=== PATIENT | male | born 1960 | race Caucasian/White ===

== ENCOUNTER 2022-09-27 14:47 | Inpatient (IN) | payer OTHER ==
[2022-09-27 15:18] VITALS: BMI 26.2
[2022-09-27] MEDS ORDERED: LORazepam 2 MG/ML SDV VIAL IM ONE (17:21)
[2022-09-27] MEDS ORDERED: ACETAMINOPHEN 325 MG TABLET (FP) PO PRN ×2 (17:22)
[2022-09-27] MEDS ORDERED: METHOCARBAMOL 500 MG TABLET PO PRN (17:22)
[2022-09-27] MEDS ORDERED: ONDANSETRON *ODT* 4 MG TABLET SL PRN (17:22)
[2022-09-27] MEDS ORDERED: BISMUTH SUBSALICYLATE 524 MG/30 ML PO PRN (17:22)
[2022-09-27] MEDS ORDERED: MAG HYDROX/AL HYDROX/SIMETH 30 ML UNIT-DOSE CUP PO PRN (17:22)
[2022-09-27] MEDS ORDERED: MAGNESIUM HYDROX 2400MG/30ML ORAL SUSPENSION 30 ML CUP PO PRN (17:22)
[2022-09-27] MEDS ORDERED: DICYCLOMINE HCL 10 MG CAPSULE PO PRN (17:22)
[2022-09-27] MEDS ORDERED: IBUPROFEN 400 MG TABLET (FP) PO PRN (17:22)
[2022-09-27] MEDS ORDERED: IBUPROFEN 600 MG TABLET (FP) PO PRN (17:22)
[2022-09-27] MEDS ORDERED: POLYETHYLENE GLYCOL (HEALTHYLAX) 3350 17 GM PACKET PO PRN (17:22)
[2022-09-27] MEDS ORDERED: LOPERAMIDE HCL 2 MG CAPSULE PO PRN (17:22)
[2022-09-27] MEDS ORDERED: BENZOCAINE/MENTHOL (CHLORASEPTIC ) LOZENGE MM PRN (17:22)
[2022-09-27] MEDS ORDERED: NALOXONE HCL (KLOXXADO) 8 MG SPRAY NS PRN (17:22)
[2022-09-27] MEDS ORDERED: hydrOXYzine PAMOATE 25 MG CAPSULE (FP) PO PRN (17:22)
[2022-09-27] MEDS ORDERED: NICOTINE 10 MG CARTRIDGE (INHALER) IH PRN (17:22)
[2022-09-27] MEDS: ALBUTEROL SO4 HFA INHALER IH PRN (20:57)
[2022-09-27] MEDS: MELATONIN 5 MG TABLETS PO SCH (22:15)
[2022-09-27] MEDS: THIAMINE HCL 100 MG TABLET (FP) PO SCH (22:15)
[2022-09-27] MEDS: diazePAM 5 MG TABLET PO SCH (22:16)
[2022-09-28] MEDS: diazePAM 5 MG TABLET PO PRN ×2 (01:09→13:40)
[2022-09-28] MEDS: diazePAM 5 MG TABLET PO SCH ×4 (05:41→22:31)
[2022-09-28] MEDS: ALBUTEROL SO4 HFA INHALER IH PRN ×3 (09:48→22:34)
[2022-09-28] MEDS: NICOTINE 7 MG/24 HOURS TOPICAL PATCH TD SCH (10:21)
[2022-09-28] MEDS: PRENATAL VITAMINS W/ FOLIC ACID TABLET (FP) PO SCH (10:21)
[2022-09-28 12:54] LABS: HEMATOCRIT 41.2 % (35.4-49); HEMOGLOBIN 13.8 GM/dL (11.7-16.9); MCH 31.8 pg (25.7-33.7); MCHC 33.5 g/dl (32.0-35.9); MEAN PLT VOLUME 7.8 fl (7.5-11.1); PLATELET COUNT 209 10^3/uL (134-434); RBC 4.33 M/mm3 (4.00-5.60); RDW 15.2 % (11.9-15.9); WHITE BLOOD COUNT 5.3 K/mm3 (4.0-10.0)
[2022-09-28 14:05] LABS: ALBUMIN 3.6 g/dl (3.4-5.0)
[2022-09-28 14:06] LABS: BLOOD UREA NITROGEN 15.8 mg/dL (7-18)
[2022-09-28 14:08] LABS: CALCIUM 9.1 mg/dL (8.5-10.1); CREATININE 0.8 mg/dL (0.55-1.3)
[2022-09-28 14:10] LABS: BILIRUBIN,TOTAL 0.8 mg/dL (0.2-1); TOT PROT 6.7 g/dl (6.4-8.2)
[2022-09-28] MEDS: MELATONIN 5 MG TABLETS PO SCH (22:31)
[2022-09-28] MEDS: THIAMINE HCL 100 MG TABLET (FP) PO SCH (22:31)
[2022-09-29] MEDS: diazePAM 5 MG TABLET PO SCH ×3 (05:33→22:22)
[2022-09-29] MEDS: ALBUTEROL SO4 HFA INHALER IH PRN ×4 (05:34→21:25)
[2022-09-29] MEDS: NICOTINE 7 MG/24 HOURS TOPICAL PATCH TD SCH (10:13)
[2022-09-29] MEDS: PRENATAL VITAMINS W/ FOLIC ACID TABLET (FP) PO SCH (10:13)
[2022-09-29] MEDS: diazePAM 5 MG TABLET PO PRN (10:15)
[2022-09-29] MEDS: THIAMINE HCL 100 MG TABLET (FP) PO SCH (22:22)
[2022-09-29] MEDS: MELATONIN 5 MG TABLETS PO SCH (22:22)
[2022-09-30] MEDS: ALBUTEROL SO4 HFA INHALER IH PRN ×2 (05:34→09:21)
[2022-09-30] MEDS ORDERED: diazePAM 5 MG TABLET PO SCH (06:00)
[2022-09-30 09:52] VITALS: BP 133/86; PULSE 85; RESP 16; TEMP 97.3
[2022-09-30] MEDS: NICOTINE 7 MG/24 HOURS TOPICAL PATCH TD SCH (10:09)
[2022-09-30] MEDS: PRENATAL VITAMINS W/ FOLIC ACID TABLET (FP) PO SCH (10:09)
[2022-10-01] MEDS ORDERED: diazePAM 5 MG TABLET PO ONE (06:00)
== END 2022-09-30 11:31 | disposition home or self-care (01) | DRG 897 ==
LOC: YASAS 14:47 → Y3N 17:08
PROVIDERS: ADMIT Allergy & Immunology; ATTEND Surgery
PROC: HZ2ZZZZ Detoxification Services for Substance Abuse Treatment (ICD-10-PCS; principal; 2022-09-27)
DX: F10.230 Alcohol dependence with withdrawal, uncomplicated (principal); F13.230 Sedative, hypnotic or anxiolytic dependence with withdrawal, uncomplicated; F17.210 Nicotine dependence, cigarettes, uncomplicated; F41.9 Anxiety disorder, unspecified; F43.10 Post-traumatic stress disorder, unspecified; J45.909 Unspecified asthma, uncomplicated
CPT/HCPCS: 36415; 80053; 85027; 86780; C9803-CS; U0003; U0005

== ENCOUNTER 2024-11-05 12:26 | Inpatient (IN) | payer OTHER ==
[2024-11-05 12:56] VITALS: BMI 24.6
[2024-11-05] MEDS ORDERED: BISMUTH SUBSALICYLATE 524 MG/30 ML PO PRN (13:24)
[2024-11-05] MEDS ORDERED: DICYCLOMINE HCL 10 MG CAPSULE PO PRN (13:24)
[2024-11-05] MEDS ORDERED: BENZONATATE 200 MG CAPSULE PO PRN (13:24)
[2024-11-05] MEDS ORDERED: POLYETHYLENE GLYCOL (HEALTHYLAX) 3350 17 GM PACKET PO PRN (13:24)
[2024-11-05] MEDS ORDERED: IBUPROFEN 600 MG TABLET (FP) PO PRN (13:24)
[2024-11-05] MEDS ORDERED: ONDANSETRON *ODT* 4 MG TABLET SL PRN (13:24)
[2024-11-05] MEDS ORDERED: IBUPROFEN 400 MG TABLET (FP) PO PRN (13:24)
[2024-11-05] MEDS ORDERED: LOPERAMIDE HCL 2 MG CAPSULE PO PRN (13:24)
[2024-11-05] MEDS ORDERED: MAGNESIUM HYDROX 2400MG/30ML ORAL SUSPENSION 30 ML CUP PO PRN (13:24)
[2024-11-05] MEDS ORDERED: NICOTINE POLACRILEX 2 MG LOZENGE BC PRN (13:24)
[2024-11-05] MEDS ORDERED: ACETAMINOPHEN 325 MG TABLET (FP) PO PRN (13:24)
[2024-11-05] MEDS ORDERED: NALOXONE (NARCAN) HCL 4 MG/0.1 ML SPRAY NS PRN (13:24)
[2024-11-05] MEDS ORDERED: METOPROLOL TARTRATE 25 MG TABLET (FP) ONE (13:45)
[2024-11-05] MEDS ORDERED: chlordiazePOXIDE HCL 25 MG CAPSULE ONE ×2 (13:45→16:00)
[2024-11-05] MEDS: METOPROLOL TARTRATE 25 MG TABLET (FP) PO ONE (13:46)
[2024-11-05] MEDS: chlordiazePOXIDE HCL 25 MG CAPSULE PO ONE (13:46)
[2024-11-05] MEDS ORDERED: MAG HYDROX/AL HYDROX/SIMETH 30 ML UNIT-DOSE CUP ONE (15:55)
[2024-11-05] MEDS: MAG HYDROX/AL HYDROX/SIMETH 30 ML UNIT-DOSE CUP PO PRN (15:57)
[2024-11-05] MEDS: chlordiazePOXIDE HCL 25 MG CAPSULE PO SCH (16:02)
[2024-11-05] MEDS: ALBUTEROL SO4 HFA INHALER IH PRN (17:25)
[2024-11-05] MEDS: amLODIPine BESYLATE 5 MG TABLET (FP) PO SCH (17:27)
[2024-11-05] MEDS: NICOTINE POLACRILEX 2 MG GUM BUC PRN (20:16)
[2024-11-05] MEDS: MELATONIN 5 MG TABLETS PO SCH (22:04)
[2024-11-05] MEDS: THIAMINE 100 MG TABLET PO SCH (22:04)
[2024-11-06] MEDS: PRENATAL VITAMINS W/ FOLIC ACID TABLET (FP) PO SCH (10:10)
[2024-11-06 11:51] LABS: HEMATOCRIT 46.6 % (35.4-49); HEMOGLOBIN 15.4 GM/dL (11.7-16.9); MCH 30.5 pg (25.7-33.7); MCHC 32.9 g/dl (32.0-35.9); MEAN CELL VOLUME 92.5 fl (80-96); MEAN PLT VOLUME 7.7 fl (7.5-11.1); PLATELET COUNT 187 10^3/uL (134-434); RBC 5.04 M/mm3 (4.00-5.60); RDW 16.3 % (11.9-15.9); WHITE BLOOD COUNT 5.6 K/mm3 (4.0-10.0)
[2024-11-06 12:01] LABS: POTASSIUM 3.7 mmol/L (3.5-5.1)
[2024-11-06 12:15] LABS: ALBUMIN 3.4 g/dl (3.4-5.0)
[2024-11-06 12:17] LABS: TOT PROT 6.6 g/dl (6.4-8.2)
[2024-11-06 12:18] LABS: CREATININE 0.9 mg/dL (0.55-1.3)
[2024-11-06 12:19] LABS: BLOOD UREA NITROGEN 17.9 mg/dL (7-18)
[2024-11-06 12:27] LABS: BILIRUBIN,TOTAL 1.1 mg/dL (0.2-1)
[2024-11-06] MEDS: METHOCARBAMOL 500 MG TABLET PO PRN (17:03)
[2024-11-06] MEDS: guaiFENesin 600 MG TABLET.ER (FP) PO PRN (21:40)
[2024-11-07] MEDS: chlordiazePOXIDE HCL 25 MG CAPSULE PO SCH (05:21)
[2024-11-07] MEDS: ALBUTEROL SO4 HFA INHALER IH PRN (05:39)
[2024-11-07] MEDS: amLODIPine BESYLATE 10 MG TABLET (FP) PO ONE (07:58)
[2024-11-07] MEDS ORDERED: amLODIPine BESYLATE 10 MG TABLET (FP) PO SCH (10:00)
[2024-11-07] MEDS: chlordiazePOXIDE HCL 25 MG CAPSULE PO PRN (14:05)
[2024-11-07] MEDS: SUVOREXANT 5 MG TABLET PO PRN (22:07)
[2024-11-08] MEDS: chlordiazePOXIDE HCL 10 MG CAPSULE PO PRN (03:10)
[2024-11-08] MEDS: chlordiazePOXIDE HCL 10 MG CAPSULE PO SCH (05:35)
[2024-11-08] MEDS: BENZOCAINE/MENTHOL (CHLORASEPTIC ) LOZENGE MM PRN (08:43)
[2024-11-08] MEDS: amLODIPine BESYLATE 10 MG TABLET (FP) PO SCH (10:07)
[2024-11-09] MEDS: chlordiazePOXIDE HCL 10 MG CAPSULE PO SCH (05:46)
[2024-11-10] MEDS: chlordiazePOXIDE HCL 10 MG CAPSULE PO ONE (05:59)
[2024-11-10 08:52] VITALS: BP 109/67; PULSE 93; RESP 18; TEMP 98.6
== END 2024-11-10 09:31 | disposition home or self-care (01) | DRG 897 ==
LOC: YASAS 12:26 → Y3N 15:42
PROVIDERS: ADMIT Allergy & Immunology; ATTEND Family Medicine Addiction Medicine
PROC: HZ2ZZZZ Detoxification Services for Substance Abuse Treatment (ICD-10-PCS; principal; 2024-11-05)
DX: F10.230 Alcohol dependence with withdrawal, uncomplicated (principal); F17.210 Nicotine dependence, cigarettes, uncomplicated; F32.A Depression, unspecified; F41.9 Anxiety disorder, unspecified; I10 Essential (primary) hypertension; J45.909 Unspecified asthma, uncomplicated; Z86.59 Personal history of other mental and behavioral disorders
CPT/HCPCS: 36415; 80053; 80305; 80307; 85027; 86780; 93005; 93010